=== PATIENT | male | born 1940 | race Caucasian/White ===

== ENCOUNTER 2024-01-19 09:55 | Outpatient (RCR) | payer OTHER, SELFPAY | END 2024-01-19 23:59 | disposition home or self-care (01) | LOC: CRHB 09:55 | PROVIDERS: ATTENDING PHYSICIAN Internal Medicine Cardiovascular Disease | DX: I25.10 Atherosclerotic heart disease of native coronary artery without angina pectoris (principal); Z95.5 Presence of coronary angioplasty implant and graft | CPT/HCPCS: G0422; G0423 ==

== ENCOUNTER 2024-02-17 09:41 | Outpatient (RCR) | payer OTHER, SELFPAY | END 2024-02-17 23:59 | disposition home or self-care (01) | LOC: CRHB 09:41 | PROVIDERS: ATTENDING PHYSICIAN Internal Medicine Cardiovascular Disease; FAMILY PHYSICIAN Internal Medicine Geriatric Medicine | DX: I25.10 Atherosclerotic heart disease of native coronary artery without angina pectoris (principal); Z95.5 Presence of coronary angioplasty implant and graft | CPT/HCPCS: G0422; G0423 ==

== ENCOUNTER → 2024-03-14 09:18 | Outpatient (REF) | payer OTHER, SELFPAY | LOC: HWRAD 09:18 | PROVIDERS: ATTENDING PHYSICIAN Nurse Practitioner Family | DX: R10.9 Unspecified abdominal pain (principal) | CPT/HCPCS: 76700 ==

== ENCOUNTER 2024-03-19 10:04 | Outpatient (RCR) | payer OTHER, SELFPAY | END 2024-03-19 23:59 | disposition home or self-care (01) | LOC: CRHB 10:04 | PROVIDERS: ATTENDING PHYSICIAN Internal Medicine Cardiovascular Disease; FAMILY PHYSICIAN Internal Medicine Geriatric Medicine | DX: I25.10 Atherosclerotic heart disease of native coronary artery without angina pectoris (principal); Z95.5 Presence of coronary angioplasty implant and graft | CPT/HCPCS: G0422; G0423 ==

== ENCOUNTER → 2024-03-28 06:38 | Day surgery (SDC) | payer OTHER, SELFPAY | LOC: GI 06:38 | PROVIDERS: ATTENDING PHYSICIAN Surgery; FAMILY PHYSICIAN Internal Medicine Geriatric Medicine | DX: K57.30 Diverticulosis of large intestine without perforation or abscess without bleeding (principal); R10.84 Generalized abdominal pain; R63.4 Abnormal weight loss; K64.9 Unspecified hemorrhoids | CPT/HCPCS: 45378 ==

== ENCOUNTER → 2024-03-30 12:16 | Outpatient (REF) | payer OTHER, SELFPAY | LOC: HWRAD 12:16 | PROVIDERS: ATTENDING PHYSICIAN Nurse Practitioner Family; FAMILY PHYSICIAN Internal Medicine Geriatric Medicine | DX: R10.9 Unspecified abdominal pain (principal); R19.5 Other fecal abnormalities | CPT/HCPCS: 74177; Q9967 ==

== ENCOUNTER 2024-04-02 09:59 | Outpatient (RCR) | payer OTHER, SELFPAY | END 2024-04-02 23:59 | disposition home or self-care (01) | LOC: CRHB 09:59 | PROVIDERS: ATTENDING PHYSICIAN Internal Medicine Cardiovascular Disease; FAMILY PHYSICIAN Internal Medicine Geriatric Medicine | DX: I25.10 Atherosclerotic heart disease of native coronary artery without angina pectoris (principal); Z95.5 Presence of coronary angioplasty implant and graft | CPT/HCPCS: G0422; G0423 ==

== ENCOUNTER 2024-07-02 14:23 | Emergency (ER) | payer OTHER, SELFPAY ==
[2024-07-02 14:27] VITALS: BP 160/93
[2024-07-02 15:03] LABS: % Basophils 0.6 % (0-2); % Eosinophils 1.6 % (0-6); % Immature Granulocytes 0.3 % (0-0.5); % Lymphocytes 22.3 % (20.5-51.1); % Neutrophils 65.2 % (42.2-75.2); Absolute Eosinophils 0.1 10^3/uL (0-0.7); Absolute Lymphocytes 1.4 10^3/uL (1.2-3.4); Absolute Monocytes 0.6 10^3/uL (0.1-0.6); Absolute Neutrophils 4.2 10^3/uL (1.4-6.5); Hematocrit 34.8 % (39.0-52.0); Hemoglobin 11.6 g/dL (13.0-18.0); Mean Corp Hgb Conc. 33.3 g/dL (33.0-37.0); Mean Corpuscular Hgb 28.8 pg (27.0-31.0); Mean Corpuscular Volume 86.4 fL (80.0-94.0); Mean Platelet Volume 10.1 fL (7.4-10.4); Nucleated Red Blood Cells % 0 % (-); Platelet Count 255 10^3/uL (130-400); Red Blood Cell Count 4.03 10^6/uL (4.70-6.10); Red Cell Dist. Width 17.3 % (11.5-14.5); White Blood Cell Count 6.4 10^3/uL (4.8-10.8)
[2024-07-02 15:31] LABS: ALT (SGPT) 31 U/L (0-50); AST (SGOT) 40 U/L (17-59); Albumin 2.7 g/dl (3.5-5.0); Alkaline Phosphatase 172 U/L (38-126); Blood Urea Nitrogen 24 mg/dl (9-20); Carbon Dioxide 27 mmol/L (22-30); Chloride 104 mmol/L (98-107); Glucose 91 mg/dl (70-99); Potassium 4.4 mmol/L (3.5-5.1); Sodium 138 mmol/L (135-145); Total Protein 6.8 g/dl (6.3-8.2); eGFR > 60.00
--- NOTE | 2024-07-02 15:45 | ED.GENMED ---
History of Present Illness
General
Chief Complaint: Heart Rate Problem
Source: patient
Exam Limitations: none
Time Seen by Provider: 07/02/24 14:50
Nursing documentation reviewed up to this point in time: agreed with
History of Present Illness
History of Present Illness:
84-year-old male past medical history of hypertension hyperlipidemia CAD status post recent stent [address] Domingo presenting to the emergency department today after being told he has atrial fibrillation after routine primary care
follow-up visit. Denies any symptoms over the past few days.
Past History
Past History
ED Past Medical History: HTN, Hypercholesterolemia and Other (arthritis)
ED Past Surgical History: Orthopedic ( Left shoulder labrum tear repair Dr. Carter. Recent left rotator cuff redo a t Cm, previous right total knee)
Review of Systems
Review of Systems
Allergies reviewed?: Yes
All Other Systems: ROS reviewed and negative except as documented in HPI and ROS
Phy Exam
Physical Exam
Physical Exam:
GENERAL: Alert , in no apparent distress
EYE: pupils equal and reactive
NECK: Supple, no significant adenopathy.
ENT: o/p clr, mmm.
CARDIAC: Irregularly irregular
LUNGS: Clear breath sounds bilaterally, no acute respiratory distress, no wheezes/rales/rhonchi
ABDOMEN: Soft, without focal tenderness, no r/g, no cvat
NEUROLOGICAL: Alert and oriented, no focal neuro deficits
SKIN: Warm and dry, skin intact.
MUSCULOSKELETAL: No edema, well perfused.
PSYCH: Normal and appropriate interaction.
Course
Orders/Labs/Results
Orders:
Orders
07/02/24 14:32
ECG [Electrocardiogram (*1)] Urgent
Reason for Study: Tachycardia
07/02/24 14:33
EKG- Treatment ONCE
07/02/24 14:56
Complete Blood Count/With Diff Urgent
Comprehensive Metabolic Panel Urgent
Magnesium Urgent
TSH Urgent
Abnormal Lab Results
07/02/24
14:56
RBC 4.03 L 10^6/uL
(4.70-6.10)
Hgb 11.6 L g/dL
(13.0-18.0)
Hct 34.8 L %
(39.0-52.0)
RDW 17.3 H %
(11.5-14.5)
Monocytes % 10.0 H %
(1.7-9.3)
BUN 24 H mg/dl
(9-20)
Alkaline Phosphatase 172 H U/L
(38-126)
Albumin 2.7 L g/dl
(3.5-5.0)
07/02/24 14:56
07/02/24 14:56
Vital Signs
Initial and Last Documented VS:
Initial Vital Signs
Temp Pulse Resp BP Pulse Ox
98.3 F 106 20 160/93 97
07/02/24 14:27 07/02/24 14:27 07/02/24 14:27 07/02/24 14:27 07/02/24 14:27
Last Documented Vital Signs
Temp Pulse Resp BP Pulse Ox
98.3 F 106 20 160/93 97
07/02/24 14:27 07/02/24 14:27 07/02/24 14:27 07/02/24 14:27 07/02/24 14:27
MDM/Problems Addressed
MDM/Problems Addressed:
84-year-old male presenting to the emergency department after being told to come in when he was discovered to have atrial fibrillation at a routine primary care follow-up. Heart rate in the 90s here patient asymptomatic denies specifically chest
pain shortness of breath palpitations. Labs were drawn and unremarkable. EKG showing A-fib no additional concerning features. Case discussed with cardiology, Saw the patient recommending starting metoprolol. They cleared him to get his scope
tomorrow and will start Eliquis to the primary care doctor to start Eliquis thereafter if no risk of bleeding. Otherwise stable for discharge asymptomatic throughout ER stay.
*Critical Care Note
Total Time (30-74mins, 75-104mins- exclusive of procedures): Not Applicable
ED Attending Note
-
Portions of this chart may have been created with voice recognition software.� Occasional wrong word or��sound alike� substitutions may have occurred due to the inherent limitations of voice recognition software.
Discharge Plan
Departure
Patient Disposition: Home (Routine Discharge)
Date of Disposition: 07/02/24
Time of Disposition: 16:47
Patient with high blood pressure during this ER visit?: No
Condition: Good
Covid-19: Not Applicable
Discharge Problem:
Atrial fibrillation
Instructions: Atrial Fibrillation (DC)
Prescriptions:
No Action
Melatonin
1 tab PO HSPRN PRN (Reason: sleep)
Patient Comments:
07/02/2020: Pt did not know which strength
diclofenac sodium 75 mg Tablet,Delayed Release (Dr/Ec)
75 mg PO HS
sulfamethoxazole-trimethoprim [Bactrim DS] 800-160 mg tablet
1 tab PO Q12H Qty: 28 0RF
Rx Instructions:
Take with over the counter probiotic.
tamsulosin [Flomax] 0.4 mg capsule
0.4 mg PO DAILY Qty: 14 0RF
amlodipine 5 mg Tablet
5 mg PO DAILY
methenamine hippurate 1 gram Tablet
1 g PO BID
aspirin 81 mg Capsule
81 mg PO DAILY
clopidogrel [clopidogrel] 75 mg tablet
75 mg PO DAILY Qty: 90 10RF
nitroglycerin [nitroglycerin] 0.4 mg tablet, sublingual
0.4 mg sublingual [id number] PRN (Reason: chest pain) Qty: 25 5RF
atorvastatin 20 mg tablet
20 mg PO QPM Qty: 90 5RF
Referrals:
Nestor Domingo MD [Active] - Follow up in 10 days
Collin Smallwood MD [Family Provider] -
Activity Restrictions/Additional Instructions:
You came to the emergency department today with concerns of atrial fibrillation. Please take the metoprolol 25 mg twice daily until follow-up. After your scope please follow-up close with the primary care doctor to discuss getting started on
Eliquis if you are eligible for it. Return to the emergency department immediately for any worsening, new or concerning symptoms.
Interventions
Interventions:
*Risk Screen - Suicide Last Done: 07/02/24 14:27
*General Assessment Last Done: 07/02/24 14:27
*Neglect/Abuse Screening Last Done: 07/02/24 14:27
ED- Cardiac Assessment Last Done: 07/02/24 15:25
ED- Pulmonary Assessment Last Done: 07/02/24 15:25
Discharge Date and Time
Print Language: ARMENIAN
[2024-07-02 16:00] LABS: TSH 0.65 uIU/ml (0.47-4.68)
--- NOTE | 2024-07-02 16:13 | CON.CAR ---
Addendum entered and electronically signed by Juanito Moran MD 07/02/24 16:47:
I saw and examined the patient.
The [employer] EXPERT's note was reviewed and I agree with the note.
Comment: 84 y/o male with hypertension, dyslipidemia, moderate mitral regurgitation, and CAD with stenting (most recent 11/25/2023) who is here from his PCP office due to new onset AFIB. He does not feel it. BP is on elevated side. Rate is 80's-110
BPM in ER.
- rate control for now w/ metoprolol
- once endoscopy is done and OK for AC, then Eliquis and aspirin
- DCCV thereafter
Original Note:
Consultation
Consultation Request
Date/Time Consultation Requested: 07/02/24 1530
Date/Time Consultation Performed: 07/02/24 1600
Requesting Provider: Bala RIVERS
Performing Provider: Nora EPNA for Dr. Moran
Reason for Consultation: afib
Medical History
-
Chief Complaint: AFIB
History of Present Illness:
84 y/o male with hypertension, dyslipidemia, moderate mitral regurgitation, and CAD with stenting (most recent 11/25/2023) who is here from his PCP office due to new onset AFIB. He does not feel it. BP is on elevated side. Rate is 80's-110 BPM in ER.
He has an outpatient endoscopy planned for tomorrow (previous abdominal pain, as well as anemia).
Past Medical History
Past Medical History: CAD, HTN, Hypercholesterolemia and Valvular Disease
Social History
Alcohol: Occasional (1-2 drinks EOD)
Family History
Family History: Reviewed & Not Pertinent
Allergies / Home Medications
Allergy/AdvReac Type Severity Reaction Status Date / Time
Influenza Virus Vaccines Allergy Hives Verified 07/02/24 14:27
�Medication �Instructions �Recorded �Confirmed �Type
Melatonin 1 tab PO HSPRN PRN sleep 07/02/20 11/25/23 History
diclofenac sodium 75 mg 75 mg PO HS 12/13/22 11/25/23 History
tablet,delayed release
sulfamethoxazole 800 1 tab PO Q12H #28 tabs 12/20/22 11/25/23 Rx
mg-trimethoprim 160 mg tablet
(Bactrim DS)
tamsulosin 0.4 mg capsule (Flomax) 0.4 mg PO DAILY #14 caps 11/16/23 11/25/23 Rx
amlodipine 5 mg tablet 5 mg PO DAILY 11/25/23 11/25/23 History
aspirin 81 mg capsule 81 mg PO DAILY 11/25/23 11/25/23 History
atorvastatin 20 mg tablet 20 mg PO QPM #90 tabs 11/25/23 Rx
clopidogrel 75 mg tablet 75 mg PO DAILY #90 tabs 11/25/23 Rx
methenamine hippurate 1 gram tablet 1 g PO BID 11/25/23 11/25/23 History
nitroglycerin 0.4 mg sublingual 0.4 mg sublingual [id number] PRN 11/25/23 Rx
tablet chest pain #25 tabs
Review of Systems
-
History Source: Patient
All other systems: Negative unless noted (he is feeling fine and currently symptom free)
Physical Exam
Vital Signs
Temp Pulse Resp BP Pulse Ox
98.3 F 106 20 160/93 97
07/02/24 14:27 07/02/24 14:27 07/02/24 14:27 07/02/24 14:27 07/02/24 14:27
Lab Results
07/02/24 14:56
07/02/24 14:56
Physical Exam
General: Well Developed, Well Nourished and No Apparent Distress
HEENT: Normocephalic and Anicteric
Respiratory: Clear and Non Labored Respirations
Cardiac: Irregular Rhythm and Murmur (II/ systolic)
Musculoskeletal: No Edema
Skin: Warm and Dry
Neuro: AO x 3
Psych: Calm
Impression / Plan
-
AFIB: new diagnosis
-type and onset unknown
-asymptomatic
-rates only mildly elevated at rest- add metoprolol 25 mg PO BID- script sent to pharmacy
-[id number] score is 4 for age, HTN, and CAD. He has had anemia and has plans for endoscopy tomorrow. Once he has this procedure and there is not concern for bleeding, per Dr. Domingo patient should discuss with Dr. Smallwood and get started on
Eliquis (dose would be 5 mg PO BID based on most recent office weight as well as creatinine).
-will arrange for 1 month f/u in our office.
-TSH WNL. We discussed risk factor management (ETOH, exercise, weight, sleep apnea, etc.)
CAD with hx stenting (most recent 11/2023):
-stable without CP
-on ASA. Plavix held for procedure tomorrow. If no bleeding, add Eliquis as above (Eliquis + Aspirin).
-continue statin
HTN:
-elevated in ER
-continue amlodipine and monitor with addition of metoprolol
Moderate MR:
-no concerning symptoms
-monitor as OP over time
Data Reviewed
-
EKG: Tracing Personally Visualized and interpreted (AFIB with RVR 107 BPM)
Medical Tests (Nuc Med, Echo etc): Report Reviewed by me (echo 09/26/23:Severe concentric left ventricular hypertrophy. Ejection fraction visually 55 to 60% with akinesis of the basal inferior wall. Hypokinesis of the basal inferolateral wall. Stage
III DD. Mildly enlarged right ventricular size with increased right ventricular wall thickness, but normal fu)
Labs: Labs Reviewed by me
[2024-07-02] MEDS: LOPRESSOR 25 MG PO (16:52)
== END 2024-07-02 17:44 | disposition home or self-care (01) ==
LOC: EMR 14:23
PROVIDERS: EMERGENCY PHYSICIAN Student in an Organized Health Care Education/Training Program; FAMILY PHYSICIAN Internal Medicine Geriatric Medicine
DX: I48.91 Unspecified atrial fibrillation (principal); I10 Essential (primary) hypertension; E78.00 Pure hypercholesterolemia, unspecified; I25.10 Atherosclerotic heart disease of native coronary artery without angina pectoris; I34.0 Nonrheumatic mitral (valve) insufficiency; Z95.5 Presence of coronary angioplasty implant and graft
CPT/HCPCS: 99283; 80053; 83735; 84443; 85025; 93005

== ENCOUNTER → 2024-07-13 10:04 | Outpatient (REF) | payer OTHER, SELFPAY | LOC: RCS 10:04 | PROVIDERS: ATTENDING PHYSICIAN Internal Medicine Cardiovascular Disease; FAMILY PHYSICIAN Internal Medicine Geriatric Medicine | DX: I34.0 Nonrheumatic mitral (valve) insufficiency (principal); I25.10 Atherosclerotic heart disease of native coronary artery without angina pectoris; I10 Essential (primary) hypertension | CPT/HCPCS: 93306 ==

== ENCOUNTER → 2024-08-21 16:56 | Outpatient (REF) | payer OTHER, SELFPAY | LOC: PAVMRI 16:56 | PROVIDERS: ATTENDING PHYSICIAN Internal Medicine Geriatric Medicine | DX: M54.50 Low back pain, unspecified (principal); G89.29 Other chronic pain | CPT/HCPCS: 72148 ==

== ENCOUNTER 2024-08-31 09:25 | Day surgery (SDC) | payer OTHER, SELFPAY | END 2024-08-31 11:22 | disposition home or self-care (01) | LOC: CATH 09:25 | PROVIDERS: ATTENDING PHYSICIAN Internal Medicine Cardiovascular Disease; FAMILY PHYSICIAN Internal Medicine Geriatric Medicine; OTHER PHYSICIAN Internal Medicine Cardiovascular Disease | DX: I48.91 Unspecified atrial fibrillation (principal); Z79.01 Long term (current) use of anticoagulants; Z79.82 Long term (current) use of aspirin; Z79.899 Other long term (current) drug therapy; Z79.02 Long term (current) use of antithrombotics/antiplatelets; I10 Essential (primary) hypertension; Z95.5 Presence of coronary angioplasty implant and graft | CPT/HCPCS: 92960; 93005 ==

== ENCOUNTER → 2024-09-18 09:54 | Outpatient (REF) | payer OTHER, SELFPAY | LOC: HWRAD 09:54 | PROVIDERS: ATTENDING PHYSICIAN Nurse Practitioner Family | DX: M79.672 Pain in left foot (principal) | CPT/HCPCS: 73620 ==

== ENCOUNTER → 2024-10-09 09:07 | Outpatient (REF) | payer OTHER, SELFPAY | LOC: HWRAD 09:07 | PROVIDERS: ATTENDING PHYSICIAN Nurse Practitioner Family | DX: R74.8 Abnormal levels of other serum enzymes (principal); R79.89 Other specified abnormal findings of blood chemistry | CPT/HCPCS: 76700 ==

== ENCOUNTER → 2025-02-27 10:19 | Outpatient (REF) | payer OTHER, SELFPAY | LOC: RAD 10:19 | PROVIDERS: ATTENDING PHYSICIAN Nurse Practitioner Family; FAMILY PHYSICIAN Internal Medicine Geriatric Medicine | DX: M25.571 Pain in right ankle and joints of right foot (principal) | CPT/HCPCS: 73610 ==

== ENCOUNTER → 2025-05-23 11:20 | Outpatient (REF) | payer OTHER, SELFPAY | LOC: HWRAD 11:20 | PROVIDERS: ATTENDING PHYSICIAN Physical Medicine & Rehabilitation; FAMILY PHYSICIAN Internal Medicine Geriatric Medicine | DX: M47.816 Spondylosis without myelopathy or radiculopathy, lumbar region (principal); M51.369 Other intervertebral disc degeneration, lumbar region without mention of lumbar back pain or lower extremity pain | CPT/HCPCS: 72114; 72170; 73502 ==

== ENCOUNTER 2025-09-03 14:59 | Inpatient (IN) | payer OTHER, SELFPAY ==
[2025-09-03] VITALS (13 sets, daily range): BP systolic 113–155; BP diastolic 60–108; BMI 25.7; BMI 23.8
--- NOTE | 2025-09-03 09:49 | ED.GENMED ---
History of Present Illness
<Bala Mtz Jr., PA-C - Last Filed: 09/03/25 13:05>
General
Chief Complaint: Heart Rate Problem
Source: patient
Exam Limitations: none
Time Seen by Provider: 09/03/25 09:35
Nursing documentation reviewed up to this point in time: agreed with
History of Present Illness
History of Present Illness:
85-year-old male past medical history of paroxysmal A-fib currently anticoagulated and currently taking diltiazem as well as hypertension hyperlipidemia presenting to the emergency department today with concerns of for 5 days of intermittent
palpitations vague shortness of breath. Feels similar to when he was in atrial fibrillation in the past. Denies any ongoing chest pain did have a brief episode a few days ago but thought this was very minimal. He has been cardioverted in the past
with success.
Past History
<Bala Mtz Jr., PA-C - Last Filed: 09/03/25 13:05>
Past History
ED Past Medical History: HTN, Hypercholesterolemia and Other (arthritis)
ED Past Surgical History: Orthopedic ( Left shoulder labrum tear repair Dr. Carter. Recent left rotator cuff redo a t Cm, previous right total knee)
Review of Systems
<Bala Mtz Jr., PA-C - Last Filed: 09/03/25 13:05>
Review of Systems
Allergies reviewed?: Yes
All Other Systems: ROS reviewed and negative except as documented in HPI and ROS
Phy Exam
<Bala Mtz Jr., PA-C - Last Filed: 09/03/25 13:05>
Physical Exam
Physical Exam:
GENERAL: Alert , in no apparent distress
EYE: pupils equal and reactive
NECK: Supple, no significant adenopathy.
ENT: o/p clr, mmm.
CARDIAC: Irregularly irregular
LUNGS: Clear breath sounds bilaterally, no acute respiratory distress, no wheezes/rales/rhonchi
ABDOMEN: Soft, without focal tenderness, no r/g, no cvat
NEUROLOGICAL: Alert and oriented, no focal neuro deficits
SKIN: Warm and dry, skin intact.
MUSCULOSKELETAL: No edema, well perfused.
PSYCH: Normal and appropriate interaction.
Course
<Bala Mtz Jr., SILVESTRE-Michael - Last Filed: 09/03/25 13:05>
Orders/Labs/Results
Orders:
Orders
09/03/25 09:15
EKG [Electrocardiogram (*1)] Stat
Reason for Study: Chest Pain
EKG- Treatment ONCE
09/03/25 09:49
Cardiac Monitoring- Treatment ONCE
CR Chest - 2 Views Urgent
Comment:
Reason For Exam: cp
09/03/25 09:56
Complete Blood Count/With Diff Urgent
Comprehensive Metabolic Panel Urgent
Magnesium Urgent
NT-proBNP Urgent
Comment: ADD
TSH Urgent
Troponin I Urgent
09/03/25 11:08
Add On- LAB Urgent
Tests Added?: BNP
09/03/25 11:09
Add On- LAB Urgent
Tests Added?: BNP
D-Dimer Urgent
09/03/25 11:38
CT Chest PE Study Urgent
Comment:
Reason For Exam: hypoxia, sob, elevated dimer
09/03/25 12:52
Furosemide [Lasix] 40 mg IV NOW STA
Abnormal Lab Results
09/03/25 09/03/25
09:56 11:09
RBC 4.25 L 10^6/uL
(4.70-6.10)
Hgb 12.3 L g/dL
(13.0-18.0)
Hct 38.1 L %
(39.0-52.0)
MCHC 32.3 L g/dL
(33.0-37.0)
RDW 14.9 H %
(11.5-14.5)
D-Dimer 1.37 H ug/mlFEU
(0.00-0.50)
Glucose 107 H mg/dl
(70-99)
Alkaline Phosphatase 209 H U/L
(38-126)
Troponin I 0.042 H* ng/ml
09/03/25 09:56
09/03/25 09:56
Vital Signs
Initial and Last Documented VS:
Initial Vital Signs
Temp Pulse Resp BP Pulse Ox
97.6 F 106 20 143/69 93
09/03/25 09:17 09/03/25 09:17 09/03/25 09:17 09/03/25 09:17 09/03/25 09:17
Last Documented Vital Signs
Temp Pulse Resp BP Pulse Ox
97.6 F 76 16 138/70 95
09/03/25 09:17 09/03/25 12:00 09/03/25 12:00 09/03/25 12:00 09/03/25 12:00
<Lulú Altman, DO - Last Filed: 09/03/25 13:08>
Orders/Labs/Results
Orders:
Orders
09/03/25 09:15
EKG [Electrocardiogram (*1)] Stat
Reason for Study: Chest Pain
EKG- Treatment ONCE
09/03/25 09:49
Cardiac Monitoring- Treatment ONCE
CR Chest - 2 Views Urgent
Comment:
Reason For Exam: cp
09/03/25 09:56
Complete Blood Count/With Diff Urgent
Comprehensive Metabolic Panel Urgent
Magnesium Urgent
NT-proBNP Urgent
Comment: ADD
TSH Urgent
Troponin I Urgent
09/03/25 11:08
Add On- LAB Urgent
Tests Added?: BNP
09/03/25 11:09
Add On- LAB Urgent
Tests Added?: BNP
D-Dimer Urgent
09/03/25 11:38
CT Chest PE Study Urgent
Comment:
Reason For Exam: hypoxia, sob, elevated dimer
09/03/25 12:52
Furosemide [Lasix] 40 mg IV NOW STA
Abnormal Lab Results
09/03/25 09/03/25
09:56 11:09
RBC 4.25 L 10^6/uL
(4.70-6.10)
Hgb 12.3 L g/dL
(13.0-18.0)
Hct 38.1 L %
(39.0-52.0)
MCHC 32.3 L g/dL
(33.0-37.0)
RDW 14.9 H %
(11.5-14.5)
D-Dimer 1.37 H ug/mlFEU
(0.00-0.50)
Glucose 107 H mg/dl
(70-99)
Alkaline Phosphatase 209 H U/L
(38-126)
Troponin I 0.042 H* ng/ml
09/03/25 09:56
09/03/25 09:56
Vital Signs
Initial and Last Documented VS:
Initial Vital Signs
Temp Pulse Resp BP Pulse Ox
97.6 F 106 20 143/69 93
09/03/25 09:17 09/03/25 09:17 09/03/25 09:17 09/03/25 09:17 09/03/25 09:17
Last Documented Vital Signs
Temp Pulse Resp BP Pulse Ox
97.6 F 76 16 138/70 95
09/03/25 09:17 09/03/25 12:00 09/03/25 12:00 09/03/25 12:00 09/03/25 12:00
<Bala Mtz Jr., PA-C - Last Filed: 09/03/25 13:05>
MDM/Problems Addressed
MDM/Problems Addressed:
85-year-old male presenting to the emergency department today with concerns of intermittent fatigue palpitations shortness of breath over the past few days. Feels similar to when he was in atrial fibrillation in the past. He is on a rate control
medication as well as Eliquis and has not missed any doses. Here tachycardic otherwise vital signs normal. Troponin mildly elevated at 0.042 no old levels for comparison. BNP elevated to 2240. Chest x-ray showing effusion CT scan that obtained
showed bilateral effusion left-sided worse than the right. Plan to admit concern patient was hypoxic while here into the high 80s requiring 4 L nasal cannula. Was given dose of Lasix.
<Bala Mtz Jr., PA-C - Last Filed: 09/03/25 13:05>
*Pulse Oximetry
SaO2: 93
Oxygen Mode of Delivery: Room air
Patient hypoxic: no (95)
*Critical Care Note
Total Time (30-74mins, 75-104mins- exclusive of procedures): Not Applicable
ED Attending Note
<Bala Mtz Jr., PA-C - Last Filed: 09/03/25 13:05>
-
Portions of this chart may have been created with voice recognition software.� Occasional wrong word or��sound alike� substitutions may have occurred due to the inherent limitations of voice recognition software.
<Lulú Altman DO - Last Filed: 09/03/25 13:08>
ED Attending Note
Patient seen and examined by attending physician: Yes
I performed the substantive portion of visit, reviewed & personally made and approve the management plan that is documented in note by myself or JANAE.: Yes
I performed a history and physical exam of patient and discussed management with resident, I reviewed resident's note and agree with documented findings and plan of care.: Yes
ED Attending Note:
85-year-old male with history of CAD status post stenting, A-fib on Eliquis presenting for shortness of breath. Patient reports symptoms for the past 4 days. Reports that last evening he particularly had difficulty sleeping. Denies known history
of congestive heart failure. Denies cough or fever. Additionally notes that he has not been having generalized fatigue and believes that he has been in A-fib for the past few weeks. Reports compliance with his medications.
Vital signs on arrival are normal. On exam, patient is in no acute respiratory distress, however does have crackles bilaterally to lung arana. Heart rate is irregular, normal rate. +1-2 lower extremity pitting edema. Concern for new onset heart
failure. Patient initially seen and evaluated by physician assistant secretary, with appropriate workup including laboratory analysis and chest x-ray imaging. BNP is elevated chest x-ray shows left-sided pleural effusion, further characterized on CT PE
study. CT shows moderate bilateral pleural effusions. Oxygen intermittently dipping down to the 80s so placed on supplemental O2. Do not feel patient is a current candidate for cardioversion, given hypoxia and current rate control. However do
feel patient warrants admission for concern of new onset heart failure. Will start patient on Lasix
Discharge Plan
Departure
Prescriptions:
No Action
amlodipine 5 mg Tablet
5 mg PO DAILY
methenamine hippurate 1 gram Tablet
1 g PO BID
acetaminophen 325 mg Capsule
650 mg PO Q6HPRN PRN (Reason: mild pain)
Eliquis 5 mg Tablet
5 mg PO BID
atorvastatin [Lipitor] 40 mg Tablet
40 mg PO QPM
diltiazem HCl 180 mg Capsule,Extended Release 24hr
180 mg PO DAILY
docusate sodium [Colace] 100 mg Capsule
100 mg PO DAILYPRN PRN (Reason: constipation)
Referrals:
Collin Smallwood MD [Family Provider, Internal Medicine]
Interventions
Interventions:
*Risk Screen - Suicide Last Done: 09/03/25 09:17
*General Assessment Last Done: 09/03/25 09:17
*Neglect/Abuse Screening Last Done: 09/03/25 10:00
*ED- Fall Risk Assessment Last Done: 09/03/25 10:00
ED- Cardiac Assessment Last Done: 09/03/25 10:00
ED- Pulmonary Assessment Last Done: 09/03/25 11:18
Discharge Date and Time
Print Language: UKRAINIAN
[2025-09-03 10:14] LABS: Hematocrit 38.1 % (39.0-52.0); Hemoglobin 12.3 g/dL (13.0-18.0); Mean Corp Hgb Conc. 32.3 g/dL (33.0-37.0); Mean Corpuscular Volume 89.6 fL (80.0-94.0); Nucleated Red Blood Cells % 0 % (-); Platelet Count 252 10^3/uL (130-400); Red Cell Dist. Width 14.9 % (11.5-14.5)
[2025-09-03 10:42] LABS: ALT (SGPT) 24 U/L (0-50); AST (SGOT) 31 U/L (17-59); Albumin 4.1 g/dl (3.5-5.0); Alkaline Phosphatase 209 U/L (38-126); Blood Urea Nitrogen 16 mg/dl (9-20); Calcium 9.9 mg/dl (8.4-10.2); Carbon Dioxide 28 mmol/L (22-30); Chloride 106 mmol/L (98-107); Estimated Creatinine Clearance 63 ml/min; Glucose 107 mg/dl (70-99); Magnesium 2.0 mg/dl (1.6-2.3); Potassium 4.4 mmol/L (3.5-5.1); Sodium 139 mmol/L (135-145); Total Protein 7.0 g/dl (6.3-8.2); eGFR > 60.00
[2025-09-03 11:06] LABS: TSH 1.35 uIU/ml (0.47-4.68)
[2025-09-03 11:18] LABS: Troponin I 0.042 ng/ml
[2025-09-03 11:31] LABS: D-Dimer 1.37 ug/mlFEU (0.00-0.50)
[2025-09-03] MEDS: LASIX 40 MG IV ×2 (13:27→16:36)
--- NOTE | 2025-09-03 14:41 | HPS.HSE ---
Family Physician
-
Family Physician: Collin Smallwood
Chief Complaint
-
History of Present Illness
85 male history of paroxysmal atrial fibrillation, hypertension, hyperlipidemia presents with 5 days of intermittent palpitations with associated shortness of breath. Similar to atrial fibrillation event previously. This time states that he got
scared because overnight developed shortness of breath when laying flat and improved slightly with sitting forward. Went downstairs sat in the recliner with improvement of respiratory status however was not able to fall back to sleep. Does admit
to increased shortness of breath while walking up the stairs. He has not had a change in his diet. Does not take diuretics at home.
While in the ED was hypoxic to the 80s started on supplemental oxygen. Chest x-ray showing bilateral pleural effusions. Elevated D-dimer therefore CT PE study obtained no evidence of pulmonary embolism however unable to evaluate bilateral lower
lobes pulmonary branches [place] due to bilateral pleural effusions. Elevated troponin of 0.042. EKG telemetry monitoring registering as atrial fibrillation. Hemoglobin 12.3. Received 40 mg IV Lasix.
Medical History
Past Medical History
Past Medical History: Reports Arrhythmia and CAD
Past Surgical History: Reports Cardiac
Social History
Tobacco: Non-smoker
Alcohol: None
Drug: None
Personal:
Living: With Family
Family History
Family History: Not pertinent
Allergies / Home Medications
Allergies reflects when Allergies were last updated in [facility].
Home Medications with original date entered in [facility]
Allergy/Medication List:
Allergies
Allergy/AdvReac Type Severity Reaction Status Date / Time
Influenza Virus Vaccines Allergy pt denies Verified 09/03/25 09:21
Home Medications
amlodipine 5 mg tablet 5 mg PO DAILY 11/25/23
methenamine hippurate 1 gram tablet 1 g PO BID 11/25/23
acetaminophen 325 mg capsule 650 mg PO Q6HPRN PRN mild pain 08/31/24
apixaban 5 mg tablet (Eliquis) 5 mg PO BID 08/31/24
atorvastatin 40 mg tablet (Lipitor) 40 mg PO QPM 09/03/25
diltiazem HCl 180 mg capsule,extended release 24 hr 180 mg PO DAILY 09/03/25
docusate sodium 100 mg capsule (Colace) 100 mg PO DAILYPRN PRN constipation 09/03/25
Review of Systems
-
A 12 point ROS was completed and negative except as noted: Yes
Physical Exam
Vital Signs
Vital Signs
Temp Pulse Resp BP Pulse Ox
97.6 F 85 21 137/71 96
09/03/25 09:17 09/03/25 14:00 09/03/25 14:00 09/03/25 14:00 09/03/25 14:00
Physical Exam
General: Well Developed
Laboratory Results
-
09/03/25 09:56
09/03/25 09:56
Laboratory Results
Total Bilirubin 1.0 mg/dl (0.2-1.3) 09/03/25 09:56
AST 31 U/L (17-59) 09/03/25 09:56
ALT 24 U/L (0-50) 09/03/25 09:56
Alkaline Phosphatase 209 U/L (38-126) H 09/03/25 09:56
Troponin I 0.042 ng/ml H* 09/03/25 09:56
Impression/Plan
-
NAD, lying in a 45 degree position does not appear to be in acute respiratory distress, on 4 L nasal cannula with a SpO2 of 95%.
Scleral Anicteric
MMM
JVD positive
Bibasilar crackles up to middle lobe
IRR, S1/S2, 1-2+ pitting edema bilaterally lower extremity
Soft, NT, ND, BS+
Warm, Dry
AAOx3
Calm
Acute on chronic hypoxemic respiratory failure with a documented SpO2 80% in the ED, radiographically pleural effusion b/l
Secondary to acute on chronic HFpEF exacerbation
IV diuretics
Wean o2 as tolerated
Maintain sp2 >90%
Acute hfpef, nyha class III-IV, without evidence of cardiogenic shock
Iv diuretics bid
Daily weight
Will need GDMT once more stable
-SGLT2i and MRA consideration
Does not need inotropic support at this time
Keep K greater than 4 magnesium greater than 2
2D echo
TSH
Goal urinary output of -1.5 to 2 L daily
Follow renal function
Consult cardiology
Pleural effusion likley to above
If unable to wean o2 after diuretics then would repeat cxr,
--If pleural effusion remain present would get an chest ultrasound and consult IR
Atrial fibrillation, paroxysmal
Continue diltiazem
Continue Eliquis
Check TSH
Has a history of requiring RADHA/DCCV last 08/31/2024
Consult cardiology as RADHA/DCCV may be required
NIMI
Trend trops till peak
Check EKG if uptrending
2d echo for WMA
CAD s/p PCI
Continue eliquis adn statin
Anemia Normocytic
Unlikely to contribute to symptomatology
Can check iron panel as an outpatient
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
Continue Methenamine BID
Full code
--- NOTE | 2025-09-03 15:43 | CON.CAR ---
Addendum entered and electronically signed by Gerald Olsen MD 09/03/25 17:41:
I reviewed and agree with the note by JEAN and it accurately reflects our care.
I saw and evaluated the patient, and I provided the substantive portion of the medical decision making. My assessment and plan is below:
85-year-old man with CAD, paroxysmal atrial fibrillation, and mixed valvular disease who presents with lower extremity edema and shortness of breath in the setting of atrial fibrillation for the past 2 weeks. Patient reports he thinks he went into
A-fib about 2 weeks ago because he has been very tired since then. Ankles have been swollen and he has had difficulty laying flat to sleep. Last night only got 1 hour of sleep so decided to come to the ER. Here he was found to be in atrial
fibrillation with heart rates in the 90s�100s. He has been started on IV Lasix.
Physical exam: Irregular rate and rhythm, no murmur, decreased breath sounds at bilateral bases, 1�2+ lower extremity edema
Telemetry: Atrial fibrillation, HR 90�100s
Labs notable for proBNP 2240, troponin 0.042 -> 0.[address]: Moderate bilateral pleural effusions
HFpEF: Likely triggered by atrial fibrillation. Continue IV diuresis with Lasix 40 mg twice daily. Will have case management nichols SGLT2 inhibitor. Update echo.
Atrial fibrillation: Rate controlled on home diltiazem. Continue Eliquis 5 mg twice daily. He denies any missed doses in the past 4 months. Cardioversion once euvolemic if he does not convert on his own.
Remainder as per JEAN note. We will continue to follow along.
Addendum entered and electronically signed by JEAN Bone 09/03/25 16:42:
Abnormal troponin, nonischemic myocardial injury in the setting of acute HFpEF
- Troponin 0.042, trend
- Chest pain free
Original Note:
Consultation
Consultation Request
Date/Time Consultation Requested: 09/03/2025 14:45
Date/Time Consultation Performed: 09/03/2025 15:30
Requesting Provider: Dr. Reinier Mcginnis
Performing Provider: JEAN Oliva for Dr. Olsen
Reason for Consultation: Acute on chronic HFpEF
Medical History
-
Chief Complaint: Shortness of breath
History of Present Illness:
Israel Capone is an 85-year-old male (known to Dr. Barahona, his primary hog slaughterer), with CAD (prior PCI), NSVT, persistent atrial fibrillation, hypertension, hypercholesterolemia, moderate mitral regurgitation, aortic sclerosis, and severe LVH
presented to the emergency department with a chief complaint of shortness of breath. He believes he went into atrial fibrillation last week. Over the past several days he has been experiencing shortness of breath, orthopnea, and lower extremity
edema. He presented to the emergency department hypoxic. He had abnormal D-dimer. He has not had any missed doses of apixaban. CT did not demonstrate PE. He is not having any chest pain.
Past Medical History
Past Medical History: Arrhythmias (Paroxysmal atrial fibrillation, NSVT), CAD, HTN, Hypercholesterolemia and Valvular Disease (Mitral regurgitation)
Past Surgical History: Orthopedic
Social History
Employment: Retired
Family History
Family History: Reviewed & Not Pertinent
Allergies / Home Medications
Allergy/AdvReac Type Severity Reaction Status Date / Time
Influenza Virus Vaccines Allergy pt denies Verified 09/03/25 09:21
�Medication �Instructions �Recorded �Confirmed �Type
amlodipine 5 mg tablet 5 mg PO DAILY 11/25/23 09/03/25 History
methenamine hippurate 1 gram tablet 1 g PO BID 11/25/23 09/03/25 History
acetaminophen 325 mg capsule 650 mg PO Q6HPRN PRN mild pain 08/31/24 09/03/25 History
apixaban 5 mg tablet (Eliquis) 5 mg PO BID 08/31/24 09/03/25 History
atorvastatin 40 mg tablet (Lipitor) 40 mg PO QPM 09/03/25 09/03/25 History
diltiazem HCl 180 mg 180 mg PO DAILY 09/03/25 09/03/25 History
capsule,extended release 24 hr
docusate sodium 100 mg capsule 100 mg PO DAILYPRN PRN constipation 09/03/25 09/03/25 History
(Colace)
Review of Systems
-
History Source: Patient
All other systems: Negative unless noted
Constitutional: Fatigue
EENT: No Symptoms
Respiratory: Trouble Breathing
Cardiac: Palpitations
Abdomen/GI: No Symptoms
: No Symptoms
Musculoskeletal: Edema
Skin: No Symptoms
Neurological: No Symptoms
Endocrine: No Symptoms
Hematologic/Lymphatic: No Symptoms
Physical Exam
Vital Signs
Temp Pulse Resp BP Pulse Ox
97.6 F 111 21 137/71 92
09/03/25 09:17 09/03/25 15:00 09/03/25 15:00 09/03/25 14:00 09/03/25 14:45
Lab Results
09/03/25 09:56
09/03/25 09:56
Troponin I 0.042 ng/ml H* 09/03/25 09:56
Ekj-D-Rplqgcceolx Pept Cancelled 09/03/25 11:03
Physical Exam
General: Well Developed, Well Nourished, No Apparent Distress and Comfortable
HEENT: Normocephalic, Anicteric and Moist Mucous Membranes
Respiratory: Crackles and Accessory Resp Muscle Use
Cardiac: S1/S2, Irregular Rhythm and Peripheral Edema
Breast: Deferred by me
GI: Soft, Non Tender, Non Distended and Normal Bowel Sounds
Rectal: Deferred by Provider
Genito-urinary: No Costovertebral Tender
Musculoskeletal: No Clubbing, No Cyanosis and Edema
Skin: Warm and Dry
Neuro: AO x 3
Hematologic/Lymphatic: No Lymphadenopathy
Psych: Calm
Impression / Plan
-
I/P: 85M with CAD (prior PCI), NSVT, persistent atrial fibrillation, hypertension, hypercholesterolemia, moderate mitral regurgitation, aortic sclerosis, and severe LVH presented to the emergency department with a chief complaint of shortness of
breath
Primary hog slaughterer: Dr. Barahona
Acute hypoxemic respiratory insufficiency, in the setting of acute HFpEF - plan as below
HFpEF, acute, severe requiring hospitalization - NEW diagnosis
- Appears volume overloaded with elevated proBNP, bilateral lower extremity edema, pleural effusions on CXR, orthopnea, and associated hypoxemia
- Diuresis with furosemide 40 mg IV twice daily
- He would benefit from lower extremity compression, ordered
- Case management to nichols SGLT2i (follows with urology for chronic prostatitis, this may not be ideal), consider MRA
- Update echocardiogram tomorrow, he is having orthopnea today
- Trend daily weight, I's/O, and BMP with diuresis
- Heart failure education
Persistent atrial fibrillation
- He had fatigue with metoprolol, now on diltiazem, currently rate controlled
- Consider DCCV after he is euvolemic, perhaps
- Oral anticoagulation: Apixaban 5 mg twice daily, he denies missed doses and abnormal bleeding
CAD
- DEVIN to D1 (2023)
- Known occluded midportion RCA with well-developed jlit-an-jczui collaterals supplying the PDA and backfilling into the distal RCA
- On single agent apixaban
- LDL at goal on current dose of atorvastatin
Severe LVH
- EKG without low voltage
- Can consider amyloid evaluation, per primary hog slaughterer
Mitral regurgitation, moderate, update TTE
Hypertension
Hypercholesterolemia, LDL at goal on atorvastatin 40 mg, continue
Data Reviewed
-
EKG: Report Reviewed by me
Radiology: Report Reviewed by me
Medical Tests (Nuc Med, Echo etc): Report Reviewed by me
Labs: Labs Reviewed by me
Old Records: Reviewed
[2025-09-03] MEDS: LIPITOR 40 MG PO (16:38)
[2025-09-03] MEDS: FLUSH (NSS) 1 FLUSH IV (16:38)
[2025-09-03 17:26] LABS: Troponin I 0.050 ng/ml
--- NOTE | 2025-09-03 17:26 | PTCARENOTE ---
received this kind gentleman form the ER, monitor shows Afib, HR 101, VSS. lung arana diminished on 3 LNC,95%. bilat. LE edema +2. Tubigrip on Bilat. LE as ordered. oriented patient to room and surroundings. CHF book;let given to patient, patient
aware to save urine to monitor output.
[2025-09-03] MEDS: ELIQUIS 5 MG PO (19:30)
[2025-09-03] MEDS: HIPREX 1 GRAM PO (19:30)
[2025-09-03 21:24] LABS: Troponin I 0.059 ng/ml
--- NOTE | 2025-09-03 22:24 | PTCARENOTE ---
Received patient at change of shift. Afib on the monitor, HR in the 90s. 95% on 2L nasal cannula. Contact precautions. Tubigrips removed HS. No complaints from pt at this time, call latif within reach.
[2025-09-04 03:30] VITALS: BP 130/62
[2025-09-04 03:47] VITALS: BMI 23.2
[2025-09-04 04:26] LABS: Hematocrit 40.4 % (39.0-52.0); Hemoglobin 12.8 g/dL (13.0-18.0); Mean Corp Hgb Conc. 31.7 g/dL (33.0-37.0); Mean Corpuscular Volume 89.8 fL (80.0-94.0); Platelet Count 289 10^3/uL (130-400); Red Cell Dist. Width 14.6 % (11.5-14.5)
[2025-09-04 04:54] LABS: Blood Urea Nitrogen 15 mg/dl (9-20); Calcium 9.7 mg/dl (8.4-10.2); Carbon Dioxide 31 mmol/L (22-30); Chloride 101 mmol/L (98-107); Estimated Creatinine Clearance 63 ml/min; Glucose 88 mg/dl (70-99); Magnesium 1.9 mg/dl (1.6-2.3); Potassium 4.0 mmol/L (3.5-5.1); Sodium 140 mmol/L (135-145); eGFR > 60.00
[2025-09-04 05:08] LABS: Troponin I 0.072 ng/ml
[2025-09-04 07:48] VITALS: BP 145/73
[2025-09-04] MEDS: HIPREX 1 GRAM PO ×2 (08:02→20:16)
[2025-09-04] MEDS: LASIX 40 MG IV (08:02)
[2025-09-04] MEDS: ELIQUIS 5 MG PO ×2 (08:03→20:16)
[2025-09-04] MEDS: CARDIZEM CD 180 MG PO (08:03)
--- NOTE | 2025-09-04 09:32 | W.PN.CD ---
Today's Communication / Plan
-
IV Lasix once today
DCCV tomorrow with then should be stable for discharge
Impression / Plan
-
I/P: 85M with CAD (prior PCI), NSVT, persistent atrial fibrillation, hypertension, hypercholesterolemia, moderate mitral regurgitation, aortic sclerosis, and severe LVH presented to the emergency department with a chief complaint of shortness of
breath
Primary research professional: Dr. Barahona
HFpEF, acute, severe requiring hospitalization - NEW diagnosis
- Triggered by A-fib. Appears volume overloaded with elevated proBNP, bilateral lower extremity edema, pleural effusions on CXR, orthopnea, and associated hypoxemia
- Diuresis with furosemide 40 mg IV. Given brisk UOP yesterday, will only dose once today. Weight is lowest in years.
- Will hold off on MRA/SGLT2 inhibitor given that he only has HF at the time of A-fib. Can consider if he has recurrence of HFpEF
- Follow-up echocardiogram
- Trend daily weight, I's/O, and BMP with diuresis
- Heart failure education
Persistent atrial fibrillation
- He had fatigue with metoprolol, now on diltiazem, currently rate controlled
- Will plan for DCCV tomorrow
- Oral anticoagulation: Apixaban 5 mg twice daily, he denies missed doses and abnormal bleeding
- Discussion of rhythm control strategy (ablation versus meds) as outpatient
CAD
- DEVIN to D1 (2023)
- Known occluded midportion RCA with well-developed [id number]-[id number] collaterals supplying the PDA and backfilling into the distal RCA
- On single agent apixaban
- LDL at goal on current dose of atorvastatin
Severe LVH
- EKG without low voltage
- Can consider amyloid evaluation, per primary research professional
Mitral regurgitation, moderate, update TTE
Hypertension
Hypercholesterolemia, LDL at goal on atorvastatin 40 mg, continue
Subjective: Breathing has improved. He was able to sleep laying flat last night. Lower extremity edema has also significantly improved.
He is net -5.7 L for the past 24 hours and weight has decreased from 170 pounds yesterday to 166 pounds today.
Physical Exam
Vital Signs/Labs
Vital Signs
Temp Pulse Resp BP Pulse Ox
97.6 F 105 20 145/73 92
09/04/25 07:48 09/04/25 08:30 09/04/25 07:48 09/04/25 08:02 09/04/25 07:48
09/03/25 09/04/25 09/05/25
06:59 06:59 06:59
Actual Weight 166 lb 3.657 oz
09/04/25 03:42
09/04/25 03:42
Magnesium 1.9 mg/dl (1.6-2.3) 09/04/25 03:42
TSH Cancelled 09/04/25 03:42
09/03/25 09/03/25
09:56 11:03
Nhp-R-Cinjywzggvx Pept 2240 Cancelled
LAB Results
09/03/25 09/03/25 09/03/25
09:56 16:31 16:49
Troponin I 0.042 H* Cancelled 0.050 H*
09/03/25 09/04/25 09/04/25
20:47 03:42 09:40
Troponin I 0.059 H* 0.072 H* Cancelled
Physical Exam
Constitutional: No acute distress and Comfortable
Cardiovascular: Pedal edema is absent, Rhythm/rate is irregular, S1S2 is normal and Murmur/rub/gallop absent
Respiratory: Respiratory effort normal and Lungs clear to auscul.
Neuro/Psych: AO x 3
Data Reviewed
-
Date of Service: September 04, 2025
Medical Decision Making: Reviewed Test Results, Test Interpretation and Review of Case with other Provider
EKG: Tracing Personally Visualized and interpreted
Labs: Labs Reviewed by me
--- NOTE | 2025-09-04 11:29 | CM ---
priced meds withpts perscrip plan- future scripts- he has no deductible with his plan
-farxiga- $145/month and Jardiance is $ 152/month until he pays the $2000 OOP expense, then it is covered at zero dollars.
[2025-09-04 11:51] VITALS: BP 106/71
--- NOTE | 2025-09-04 12:57 | PTCARENOTE ---
Pt is AOx3, no complaints of pain or discomfort. Independent OOB. Afib on tele monitor, VSS. Pt went for ECHO today. Plan for CV tomorrow, will be NPO at midnight. Call latif within reach.
--- NOTE | 2025-09-04 14:29 | CM ---
spoke to pt in room, he is prev indep, lives with his in a 2 story home with 4 steps to enter. he denies any dc planning needs or dme's. plan is for dc to home when medically stable.
--- NOTE | 2025-09-04 14:33 | W.PN.HOSP.TC ---
Today's Communication/Plan
-
Assessment / Plan
Assessment / Plan
NAD
Scleral Anicteric
MMM
JVD - negative
CTABL
IRR, S1/S2, 1-2+ pitting edema bilaterally lower extremity
Soft, NT, ND, BS+
Warm, Dry
AAOx3
Calm
Acute on chronic hypoxemic respiratory failure with a documented SpO2 80% in the ED, radiographically pleural effusion b/l
Secondary to acute on chronic HFpEF exacerbation
IV diuretics
Wean o2 as tolerated
Maintain sp2 >90%
Acute hfpef, nyha class III-IV, without evidence of cardiogenic shock
Iv diuretics - made daily by cards
Daily weight
Will need GDMT once more stable
-SGLT2i and MRA consideration
Does not need inotropic support at this time
Keep K greater than 4 magnesium greater than 2
2D echo
TSH
Goal urinary output of -1.5 to 2 L daily
Follow renal function
Consult cardiology
Pleural effusion likley to above
If unable to wean o2 after diuretics then would repeat cxr,
--If pleural effusion remain present would get an chest ultrasound and consult IR
Atrial fibrillation, paroxysmal
Continue diltiazem
Continue Eliquis
Check TSH
Has a history of requiring RADHA/DCCV last 08/31/2024
Consult cardiology as RADHA/DCCV
-NPO aftermidnight
-Plan for cardioversion
NIMI
Trend trops till peak
Check EKG if uptrending
2d echo for WMA
CAD s/p PCI
Continue eliquis adn statin
Anemia Normocytic
Unlikely to contribute to symptomatology
Can check iron panel as an outpatient
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
Continue Methenamine BID
Full code
Anticipated Discharge: 24 - 48 hours
Subjective/Interval History
-
Date of Service: September 04, 2025
seen and exmained. no new complaints. no acute overnight event
Objective Data
-
Labs:
Laboratory Results
09/04/25
03:42
WBC 6.0
Hgb 12.8 L
Hct 40.4
Plt Count 289
Sodium 140
Potassium 4.0
Chloride 101
Carbon Dioxide 31 H
BUN 15
Creatinine 0.9
Glucose 88
Calcium 9.7
Vital Signs:
Vital Signs
Temp Pulse Resp BP Pulse Ox
97.9 F 68 20 106/71 94
09/04/25 11:52 09/04/25 12:45 09/04/25 11:52 09/04/25 11:51 09/04/25 11:52
I&O
09/03/25 09/04/25 09/05/25
06:59 06:59 06:59
Output Total 5150 / 5150 600 / 600
Balance -5150 / -5150 -600 / -600
[2025-09-04 15:42] VITALS: BP 110/72
[2025-09-04] MEDS: LIPITOR 40 MG PO (17:29)
[2025-09-04 19:02] VITALS: BP 106/63
[2025-09-04 22:29] VITALS: BP 119/74
--- NOTE | 2025-09-04 22:43 | PTCARENOTE ---
Received patient at change of shift. Afib on the monitor, HR in the 70s. NPO at midnight, pt verbalizes understanding. No complaints from pt at this time, call latif within reach.
[2025-09-05 04:05] VITALS: BP 110/61
[2025-09-05 04:25] LABS: Hematocrit 36.2 % (39.0-52.0); Hemoglobin 12.1 g/dL (13.0-18.0); Mean Corp Hgb Conc. 33.4 g/dL (33.0-37.0); Mean Corpuscular Volume 88.9 fL (80.0-94.0); Platelet Count 263 10^3/uL (130-400); Red Cell Dist. Width 14.4 % (11.5-14.5)
[2025-09-05 04:26] VITALS: BMI 23.1
[2025-09-05 04:50] LABS: Blood Urea Nitrogen 20 mg/dl (9-20); Calcium 9.6 mg/dl (8.4-10.2); Carbon Dioxide 30 mmol/L (22-30); Chloride 103 mmol/L (98-107); Estimated Creatinine Clearance 63 ml/min; Glucose 88 mg/dl (70-99); Magnesium 1.9 mg/dl (1.6-2.3); Potassium 4.0 mmol/L (3.5-5.1); Sodium 137 mmol/L (135-145); eGFR > 60.00
[2025-09-05] MEDS: HIPREX 1 GRAM PO (08:16)
[2025-09-05] MEDS: ELIQUIS 5 MG PO (08:16)
[2025-09-05] MEDS: CARDIZEM CD 180 MG PO (08:16)
[2025-09-05 08:18] VITALS: BP 116/66
[2025-09-05 08:20] VITALS: BP 116/66
--- NOTE | 2025-09-05 08:58 | W.PN.CD ---
Today's Communication / Plan
-
DCCV today, discharge if feeling well
Afib ablation consideration as outpatient
will eval for amyloid as outpatient
SGLT2i as outpatient
Impression / Plan
-
I/P: 85M with CAD (prior PCI), NSVT, persistent atrial fibrillation, hypertension, hypercholesterolemia, moderate mitral regurgitation, aortic sclerosis, and severe LVH presented to the emergency department with a chief complaint of shortness of
breath
Primary dietetic assistant: Dr. Barahona
HFpEF, acute, severe requiring hospitalization - NEW diagnosis
- Triggered by A-fib. Appeared volume overloaded with elevated proBNP, bilateral lower extremity edema, pleural effusions on CXR, orthopnea, and associated hypoxemia
- Diuresis with furosemide 40 mg IV. Given brisk UOP, will hold off on additional diuresis. Weight is lowest in years.
- Will plan to add SGLT2i as outpatient
- Echo with normal EF, LVH, mild-mod MR
- Heart failure education
Persistent atrial fibrillation
- He had fatigue with metoprolol, now on diltiazem, currently rate controlled
- Will plan for DCCV today
- Oral anticoagulation: Apixaban 5 mg twice daily, he denies missed doses and abnormal bleeding
- Discussion of rhythm control strategy (ablation versus meds), will set up for outpatient follow up with Dr. Stewart to discuss ablation given recurrent Afib episodes with associated heart failure
CAD
- DEVIN to D1 (2023)
- Known occluded midportion RCA with well-developed atbe-ad-[id number] collaterals supplying the PDA and backfilling into the distal RCA
- On single agent apixaban
- LDL at goal on current dose of atorvastatin
Severe LVH
- EKG without low voltage
- will workup for amyloid evaluation as outpatient
Mitral regurgitation, moderate, update TTE
Hypertension
Hypercholesterolemia, LDL at goal on atorvastatin 40 mg, continue
Subjective: Breathing has improved. He was able to sleep laying flat last night. Lower extremity edema has also significantly improved.
Physical Exam
Vital Signs/Labs
Vital Signs
Temp Pulse Resp BP Pulse Ox
36.5 C 119 12 116/66 93
09/05/25 08:20 09/05/25 08:20 09/05/25 08:20 09/05/25 08:20 09/05/25 04:26
09/04/25 09/05/25 09/06/25
06:59 06:59 06:59
Actual Weight 75.4 kg 75 kg
09/05/25 04:11
09/05/25 04:11
Magnesium 1.9 mg/dl (1.6-2.3) 09/05/25 04:11
TSH Cancelled 09/04/25 03:42
09/03/25 09/03/25
09:56 11:03
Xgf-Q-Eyhoyoamxlp Pept 2240 Cancelled
LAB Results
09/03/25 09/03/25 09/03/25
09:56 16:31 16:49
Troponin I 0.042 H* Cancelled 0.050 H*
09/03/25 09/04/25 09/04/25
20:47 03:42 09:40
Troponin I 0.059 H* 0.072 H* Cancelled
Physical Exam
Constitutional: Comfortable
Cardiovascular: Rhythm/rate is irregular
Respiratory: Respiratory effort normal
Neuro/Psych: AO x 3
Data Reviewed
-
Date of Service: September 05, 2025
Medical Decision Making: Reviewed Test Results
EKG: Tracing Personally Visualized and interpreted
Echo: Tracing Personally Visualized and interpreted
X-Ray/CT/US/MRI/NUC/PET: Image Personally Visualized and interpreted
Labs: Labs Reviewed by me
--- NOTE | 2025-09-05 09:49 | PN.CDI ---
CDI
- -
CDI:
Physician Documentation Request
Admit Date: 09/03/25 14:59
Dear Doctor Ras,
Patient admitted for respiratory failure.
09/04 Cardiology PN: 'Persistent atrial fibrillation - He had fatigue with metoprolol, now on diltiazem, currently rate controlled - Will plan for DCCV tomorrow'
09/04 Hospitalist PN: 'Atrial fibrillation, paroxysmal, Continue diltiazem, Continue Eliquis'
If possible, please provide further specificity regarding atrial fibrillation, such as:
Persistent atrial fibrillation - episodes of continuous AF that last more than 7 days and do not self-terminate
Paroxysmal atrial fibrillation - terminates spontaneously or with intervention within 7 days of onset
Other - please specify
Use of terms such as suspected, likely, concern for, or probable (associated with a specific diagnosis that is being evaluated, monitored, or treated as if it exists) are acceptable and can be coded in the inpatient setting, when documented at the
time of discharge.
Thank you,
Isis Betancur RN, BSN
CDI Specialist
Available via [employer] text
Please use your independent medical judgment in providing your response.
--- NOTE | 2025-09-05 11:21 | ITS.CL.CARDI ---
Chief Science Officer - Cardioversion
Cardioversion
Procedure Report:
Date of Procedure: 09/05/25
Procedure: Cardioversion
Indication: Symptomatic atrial fibrillation
Performing Physician: Chuy Guevara MD
Technique: The patient was brought to the holding area. Signed informed consent was obtained. A time out was called and performed. The patient was anesthetized by the anesthesia service. Anticoagulation status was reviewed and appropriate. R2 pads
were placed anteriorly and posteriorly. A 200 J synchronized biphasic shock restored normal sinus rhythm without significant bradycardia. There were no complications.
Conclusion: Uncomplicated cardioversion from atrial fibrillation to sinus rhythm.
Recommendation: Routine post cardioversion care. Continue terminologist anticoagulation.
[2025-09-05 12:56] VITALS: BP 123/72
--- NOTE | 2025-09-05 14:50 | W.DCSUMMARY ---
Discharge Summary
Discharge Data
Date of Admission: 09/03/25
Date of Discharge: 09/05/25
-
Pending Results: No
Hospital Course
85 male history of paroxysmal atrial fibrillation, hypertension, hyperlipidemia
Presented with shortness of breath and palp will be getting worse. He was unable to breathe while laying flat slightly improved with sitting forward. Elevated BNP. Elevated troponin. Found to be in atrial fibrillation however rate controlled.
Chest x-ray demonstrating bilateral pleural effusions. Elevated D-dimer however CT PE was negative for pulmonary embolism. Started on IV diuretics evaluated by cardiology. 2D echocardiogram obtained results are as below. Tolerated IV diuretics
well. Suspect heart failure exacerbation was secondary to paroxysmal atrial fibrillation that has been ongoing for the last several days. On 09/05/2025 was cardioverted back into sinus rhythm by cardiology. Recommend outpatient follow-up with
cardiology for further heart failure GDMT management.
Will need to follow-up with electrophysiology for continued discussion of ablation versus medication and treatments of rhythm control strategy. Will also need to follow-up with cardiology for further amyloid evaluation as outpatient due to EKG with
low voltage and severe LVH.
CXR
IMPRESSION:
Left basilar opacification at least in part compatible with small left pleural effusion, possible accompanying atelectasis and/or pneumonia.
Ct Chest
IMPRESSION:
No evidence of central pulmonary embolism. Unfortunately, as result of moderate bilateral pleural effusions (left slightly greater than right) and left greater than right lower lobe opacification, evaluation of bilateral lower lobe pulmonary
arterial branches markedly limited and pulmonary embolism cannot be excluded.
Left lower lobe opacification suggesting atelectasis and/or pneumonia.
Pulmonary interstitium at least top normal, cannot exclude mild interstitial edema or pneumonitis.
2d echo
SUMMARY
1. Ejection fraction is 55-60% by visual assessment. Severe concentric left ventricular hypertrophy. Basal to mid inferior/inferolateral hypokinesis.
2. Right ventricular cavity size cavity is mildly dilated. Right ventricular systolic function is within normal limits.
3. Severely dilated left atrium.
4. Severely dilated right atrium.
5. Mild to moderate mitral valve regurgitation.
6. Mild tricuspid regurgitation. Estimated pulmonary artery pressure of 28 mmHg assuming a right atrial pressure of 8 mmHg.
7. Bilateral pleural effusion is noted.
8. Compared to a prior transthoracic echocardiogram study from 07/13/2024, no significant changes are seen.
Cardioversion
Indication: Symptomatic atrial fibrillation
Performing Physician: Chuy Guevara MD
Technique: The patient was brought to the holding area. Signed informed consent was obtained. A time out was called and performed. The patient was anesthetized by the anesthesia service. Anticoagulation status was reviewed and appropriate. R2 pads
were placed anteriorly and posteriorly. A 200 J synchronized biphasic shock restored normal sinus rhythm without significant bradycardia. There were no complications.
Conclusion: Uncomplicated cardioversion from atrial fibrillation to sinus rhythm.
Recommendation: Routine post cardioversion care. Continue prison anticoagulation.
Seen and examined on the day of discharge which was 09/05. No new complaints. No acute voenright events
sitting in bedside chair.
states he can see his ankles again
NAD
Scleral Anicteric
MMM
No JVD
CTABL
IRR, S1/S2
Soft, NT, ND, BS+
Warm, Dry
AAOx3
Calm
More than 30 minutes spent in discharge including
Final examination of the patient
Summarizing hospital stay
Instructions for continuing care to all relevant caregivers
Preparation of discharge records, prescriptions, and referral forms
Total time spent (in minutes): 33mins
Discharge Plan
-
Patient Disposition: Home (Routine Discharge)
Discharge Diagnosis/Procedures: Afib - paroxysmal
Heart Failure with Preserved EF
Diet: As tolerated
Activity: As tolerated
Driving Restrictions: No driving for 24 hours
Specialty Instructions: Weigh Daily- Call MD for wt gain/loss 3 lbs overnight/5 lbs in 1 week
Activity Restrictions/Additional Instructions:
Presented with shortness of breath and palp will be getting worse. He was unable to breathe while laying flat slightly improved with sitting forward. Elevated BNP. Elevated troponin. Found to be in atrial fibrillation however rate controlled.
Chest x-ray demonstrating bilateral pleural effusions. Elevated D-dimer however CT PE was negative for pulmonary embolism. Started on IV diuretics evaluated by cardiology. 2D echocardiogram obtained results are as below. Tolerated IV diuretics
well. On 09/05/2025 was cardioverted back into sinus rhythm by cardiology. Recommend outpatient follow-up with cardiology for further heart failure GDMT management.
Will need to follow-up with electrophysiology for continued discussion of ablation versus medication and treatments of rhythm control strategy. Will also need to follow-up with cardiology for further amyloid evaluation as outpatient due to EKG with
low voltage and severe LVH.
CXR
IMPRESSION:
Left basilar opacification at least in part compatible with small left pleural effusion, possible accompanying atelectasis and/or pneumonia.
Ct Chest
IMPRESSION:
No evidence of central pulmonary embolism. Unfortunately, as result of moderate bilateral pleural effusions (left slightly greater than right) and left greater than right lower lobe opacification, evaluation of bilateral lower lobe pulmonary
arterial branches markedly limited and pulmonary embolism cannot be excluded.
Left lower lobe opacification suggesting atelectasis and/or pneumonia.
Pulmonary interstitium at least top normal, cannot exclude mild interstitial edema or pneumonitis.
2d echo
SUMMARY
1. Ejection fraction is 55-60% by visual assessment. Severe concentric left ventricular hypertrophy. Basal to mid inferior/inferolateral hypokinesis.
2. Right ventricular cavity size cavity is mildly dilated. Right ventricular systolic function is within normal limits.
3. Severely dilated left atrium.
4. Severely dilated right atrium.
5. Mild to moderate mitral valve regurgitation.
6. Mild tricuspid regurgitation. Estimated pulmonary artery pressure of 28 mmHg assuming a right atrial pressure of 8 mmHg.
7. Bilateral pleural effusion is noted.
8. Compared to a prior transthoracic echocardiogram study from 07/13/2024, no significant changes are seen.
Cardioversion
Indication: Symptomatic atrial fibrillation
Performing Physician: Chuy Guevara MD
Technique: The patient was brought to the holding area. Signed informed consent was obtained. A time out was called and performed. The patient was anesthetized by the anesthesia service. Anticoagulation status was reviewed and appropriate. R2 pads
were placed anteriorly and posteriorly. A 200 J synchronized biphasic shock restored normal sinus rhythm without significant bradycardia. There were no complications.
Conclusion: Uncomplicated cardioversion from atrial fibrillation to sinus rhythm.
Recommendation: Routine post cardioversion care. Continue prison anticoagulation.
Instructions: *CBC Heart Failure Instructions
Referrals:
Xavi Stewart MD [Active, Cardiology]
Referral Note: Office will call to arrange visit with stereo compiler to discuss ablation
Collin Smallwood MD [Family Provider, Internal Medicine]
Clyde Barahona MD [Active, Cardiology] - 10/03/25 3:00 pm
Prescriptions:
Continued
amlodipine 5 mg Tablet
5 mg PO DAILY
methenamine hippurate 1 gram Tablet
1 g PO BID
acetaminophen 325 mg Capsule
650 mg PO Q6HPRN PRN (Reason: mild pain)
Eliquis 5 mg Tablet
5 mg PO BID
atorvastatin [Lipitor] 40 mg Tablet
40 mg PO QPM
diltiazem HCl 180 mg Capsule,Extended Release 24hr
180 mg PO DAILY
docusate sodium [Colace] 100 mg Capsule
100 mg PO DAILYPRN PRN (Reason: constipation)
Discharge Orders:
Discharge Patient (As Directed); Ordered 09/05/25
Ordered By: Reinier Mcginnis
Care Plan Goals
Care Plan Goals:
Problem: Readiness for enhanced knowledge related to diagnosis and treatment plan
Goal: Understand your diagnosis and treatment plan needs, including medications if applicable.
Instructions: Know your diagnosis, underlying causes and treatment plan options, including medications if applicable. Consult with your health care team to learn about your diagnosis and treatment plan, including medications if applicable.
Discharge Date and Time
Print Language: MOZAMBICAN
[2025-09-05 14:59] VITALS: BP 120/95
--- NOTE | 2025-09-05 15:20 | PTCARENOTE ---
~1833-1700: Handoff report received from nightshift RN. Pt independent in room. AOx4, Afib 70s-120s with movement, SBP 110s, RA satting 91%. Pt denies pain at this time. NPO for CV later today. All needs met at this time, call latif within reach.
~[id number]: Report given to CCL. Patient taken for CV via wheelchair.
~4812-0274: Patient returned to room via wheelchair from CV. Pt Aox4, NSR 60s on tele, SBP 120s. Pt denies pain at this time. Ambulating in room independently. Diet advanced. Messaged general forecaster and hospitalist to dscuss dc, awaiting dc orders.
~8624-0221: DC orders in. PIV and Tele box removed from patient. Patient dressed independently. VSS. DC paperwork reviewed with patient. All questions answered at this time. Patient escorted to lobby and taken home via Uber in stable condition.
--- NOTE | 2025-09-06 09:18 | W.HF.CON ---
Heart Failure
- LV Function
Left ventricular function study result: LV Ejection fraction >/= 50%
Ejection Fraction Percentage: 55-60
- ARNI
Patient already on ARNI: No
Heart Failure ARNI Not Indicated: LV Ejection Fraction >/= 40%
- ACEI/ARB
Patient already on ACEI/ARB: No
Heart Failure ACEI/ARB Not Indicated: LV Ejection Fraction > 40%
- Beta Thony
Patient already on Evidence Based Beta Thony: No
Heart Failure Evidence Based Beta Thony Not Indicated: LV Ejection Fraction > 40%
- Mineralocorticord Receptor Antagonist
Patient already on MRA: No
Heart Failure MRA Not Indicated: LV Ejection Fraction > 40%
- SGLT-2 Inhibitor
Patient already on SGLT-2 Inhibitor: No
Heart Failure SGLT-2 Inhibitor Not Indicated: LV Ejection Fraction >40%
- Afib Anticoagulation
Patient already on Anticoagulation for Afib: Yes
- NYHA CHF Classification
NYHA CHF Classification Level: Class III - Symptoms w/ min exertion, interferes w/ nml daily activity
- ACC/AHA Stage
ACC/AHA Stage: Stage C: Symptomatic Heart Failure
== END 2025-09-05 15:20 | disposition home or self-care (01) | DRG 291 ==
LOC: IVU 14:59
PROVIDERS: Internal Medicine Cardiovascular Disease; Physician Assistant; ADMITTING PHYSICIAN Hospitalist; CONSULT PHYSICIAN Student in an Organized Health Care Education/Training Program; EMERGENCY PHYSICIAN Student in an Organized Health Care Education/Training Program; FAMILY PHYSICIAN Internal Medicine Geriatric Medicine
PROC: 5A2204Z Restoration of Cardiac Rhythm, Single (ICD-10-PCS; 2025-09-05)
DX: I11.0 Hypertensive heart disease with heart failure (principal); I50.33 Acute on chronic diastolic (congestive) heart failure; J96.21 Acute and chronic respiratory failure with hypoxia; I48.19 Other persistent atrial fibrillation; I47.20 Ventricular tachycardia, unspecified; I5A Non-ischemic myocardial injury (non-traumatic); I70.0 Atherosclerosis of aorta; I34.0 Nonrheumatic mitral (valve) insufficiency; M19.90 Unspecified osteoarthritis, unspecified site; I25.10 Atherosclerotic heart disease of native coronary artery without angina pectoris; D64.9 Anemia, unspecified; E78.00 Pure hypercholesterolemia, unspecified; Z79.01 Long term (current) use of anticoagulants; Z95.5 Presence of coronary angioplasty implant and graft; Z88.7 Allergy status to serum and vaccine; Z79.899 Other long term (current) drug therapy
CPT/HCPCS: 71046; 71275; 80048; 80053; 83735; 83880; 84443; 84484; 85025; 85027; 85379; 92960; 93005; 93306; 96374; 99285; Q9967

== ENCOUNTER → 2025-10-01 09:24 | Outpatient (REF) | payer OTHER, SELFPAY | LOC: HWRAD 09:24 | PROVIDERS: ATTENDING PHYSICIAN Internal Medicine; FAMILY PHYSICIAN Internal Medicine Geriatric Medicine | DX: R74.8 Abnormal levels of other serum enzymes (principal) | CPT/HCPCS: 76700 ==

== ENCOUNTER → 2025-10-18 09:36 | Outpatient (REF) | payer OTHER, SELFPAY | LOC: DHVS 09:36 | PROVIDERS: ATTENDING PHYSICIAN Internal Medicine Geriatric Medicine | DX: R20.0 Anesthesia of skin (principal) | CPT/HCPCS: 93931 ==

== ENCOUNTER 2025-11-11 06:00 | Day surgery (SDC) | payer OTHER, SELFPAY ==
[2025-11-04 10:22] VITALS: BMI 24.8
[2025-11-04 11:04] LABS: Hematocrit 38.2 % (39.0-52.0); Hemoglobin 12.5 g/dL (13.0-18.0); Mean Corp Hgb Conc. 32.7 g/dL (33.0-37.0); Mean Corpuscular Volume 89.0 fL (80.0-94.0); Nucleated Red Blood Cells % 0 % (-); Platelet Count 231 10^3/uL (130-400); Red Cell Dist. Width 15.3 % (11.5-14.5)
[2025-11-04 11:21] LABS: ALT (SGPT) 46 U/L (0-50); AST (SGOT) 47 U/L (17-59); Albumin 4.5 g/dl (3.5-5.0); Alkaline Phosphatase 269 U/L (38-126); Blood Urea Nitrogen 21 mg/dl (9-20); Calcium 10.4 mg/dl (8.4-10.2); Carbon Dioxide 30 mmol/L (22-30); Chloride 102 mmol/L (98-107); Estimated Creatinine Clearance 59 ml/min; Glucose 89 mg/dl (70-99); Potassium 4.2 mmol/L (3.5-5.1); Sodium 137 mmol/L (135-145); Total Protein 8.0 g/dl (6.3-8.2); eGFR > 60.00
[2025-11-11] VITALS (14 sets, daily range): BP systolic 109–121; BP diastolic 50–85; BMI 24.7
[2025-11-11 08:50] LABS: ACT-LR - POC 342 Seconds (116-155)
[2025-11-11 09:14] LABS: ACT-LR - POC 290 Seconds (116-155)
[2025-11-11 09:39] LABS: ACT-LR - POC 387 Seconds (116-155)
--- NOTE | 2025-11-11 10:06 | ITS.CL.ABL ---
Shank Breaker - Ablation
Ablation
Procedure Report:
AFIB ablation:
Mr. Capone is a very pleasant 85 yr old gentleman with h/o CAD (RN NICU - RCA and PCI with stent to D1), moderate MR, NSVT, severe LVH, cardiomyopathy, HTN, HLD, and CELSA and persistent atrial fibrillation presented today to the EP lab for atrial
fibrillation / flutter ablation.
Date of Procedure:
11/11/2025
Indications:
Recurrent atrial fibrillation / atrial flutter
Pre-Operative Diagnosis:
Persistent atrial fibrillation /Atrial flutter
Post-Operative Diagnosis:
Persistent atrial fibrillation /Atrial flutter
Procedure Performed:
Atrial fibrillation ablation with pulmonary vein isolation
Left atrial flutter � roof dependent ablation
Posterior wall isolation
Performing Physician:
Xavi Stewart MD
Assistants:
EP staff
Anesthesia:
See anesthesia records
Detailed Description of the Procedure:
Written informed consent was obtained from the patient after a full explanation of the risks and benefits of the procedure including the risks of sedation and anesthesia.
The patient was brought to the electrophysiology laboratory in stable condition in fasting state. Continuous electrocardiographic and hemodynamic monitoring was initiated.
The initial rhythm was sinus.
Time out:
The procedure site was meticulously prepared with surgical scrub and allowed to dry with no pooling. Sterile draping was applied to cover the procedure site. The image intensifier was draped with sterile bag and positioned over the patient.
Prior to the start of the procedure a surgical pause was performed with in agreement from anesthesia, EP staff with double identifier and explanation of the procedure, plan and site of the procedure stated with allergies and medications and
pertinent labs reviewed.
After infusion of local anesthetic, vascular access was obtained under ultrasound guidance and sheaths were placed over guide wire as detailed below. The images were stored in patient chart.
Sheaths:
Agilis sheath in right femoral vein upgraded from 8Fr in right femoral vein
9Fr in right femoral vein
7Fr in right femoral vein
6Fr in right femoral artery
Catheters:
The Affera Sphere 9 catheter -bidirectional D/F - at locations of HRA, RV, LA and LV.
ICE catheter - at locations of RA, SVC, and RV.
Bard decapolar catheter � In RA and CS
A 7000 units of heparin was given
Intracardiac ECHO:
An 8-Swazi AcuNav intracardiac ECHO (ICE) probe was advanced through the 9-Swazi sheath in the right femoral vein into the right atrium under fluoroscopic and ICE ultrasound image guidance and a baseline ECHO study was performed. The left atrial
size was severely dilated. There was trace tricuspid regurgitation. There was severre mitral regurgitation. There was mildly reduced left ventricular systolic function. There is no pericardial effusion. All the four veins were identified and has
good flow identified. No definite clot seen. Therre was sluggish flow into the BITA.
During the procedure, ICE was used for monitoring of complications, guidance of trans-septal puncture, monitor the catheter position and tracking ablation lesions. No change in the pericardial space noted throughout the procedure.
Trans-septal Puncture:
Heparin was initiated and infused to maintain appropriate ACT. A J-tipped guidewire was advanced through into the superior vena cava under fluoroscopic and ICE guidance. The Agilis sheath was advanced into the superior vena cava over a guidewire. A
BRK needle with stylet was advanced inside the Agilis sheath. The apparatus was withdrawn until it was in contact with the fossa ovalis. The position was adjusted based on fluoroscopy and ultrasound images from ICE. Under fluoroscopic, hemodynamic
and ICE ultrasound guidance, left atrium was cannulated by advancing the needle. Once atrial septum was cannulated, the needle was pulled back and the guide wire was advanced through the needle into the left atrium. The guide wire was advanced into
the left superior pulmonary vein. Both the sheath and the dilator was advanced into the left atrium. The dilator with the needle was withdrawn. Blood was aspirated from the Agilis sheath and arterial blood confirmed. The sheath was flushed. Saline
injection noted into the left atrium on ICE. The waveform of the LA pressure was recorded. The mapping catheter was advanced in the Agilis sheath into the left pulmonary vein.
The LA pressure sowed severe MR with large V waves. This appeared much elevated than previously reported on the ECHO report.
3D Electroanatomic Mapping:
Using the Sphere 9 Affera catheter advanced through Agilis sheath into the left atrium, an electroanatomic map (EAM) of the left atrium was created using [employer]ho[employer]� mapping system with Icera software. The map was used for localization of catheter
position and tacking of ablation lesions.
The EAM of the left atrium showed a total of 5 PVs with two left and three right sided pulmonary veins. There was extensive scarring noted in the LA. The posterior wall had scattered signals. The LA was severely dilated.
Following the EAM, preparation were made for ablation.
Ablation:
Ablation # 1: Atrial fibrillation ablation - Pulmonary vein Isolation:
Pulsed field ablation was performed using an open irrigation, bidirectional, contact sensing, dual energy ablation catheter (Affera sphere -9) by completing the circumferential lesions around the left and right pulmonary veins achieving pulmonary
vein isolation.
Ablation # 2: Roof line Formation:
There was a clear channel of electrical activity left in the posterior wall with multiple CFAE and AF areas on the roof and ablation in that area increased the risk of atrial flutter and decision was made to create a roof line to block a slow
conduction. A set of pulsed field ablations were placed on the roof line connecting the left superior pulmonary vein ablation lesions to the right superior pulmonary vein lesions rings.
Ablation # 3: Posterior wall isolation with the Box lesions set Formation:
There was a significant fractionation seen in the posterior wall and LA AF foci along with CFAE made it clear as the posterior wall is critical in maintaining the atrial fibrillation and the decision was made to isolate the posterior wall by
creating a �Box� lesions.
A set of Pulsed field ablations were placed on the floor line connecting the left inferior pulmonary vein ablation lesions to the right inferior pulmonary vein lesions rings.
The sphere 9 in the posterior wall showed entrance block and the pacing from the posterior wall showed no exit from the box lesions confirming the exit block.
Confirmation of the PVI and bidirectional block:
Following achievement of entrance block at the pulmonary veins, pacing from the Sphere 9 affera catheter in each of the four veins at 10 milliamps for 4 milliseconds showed entrance and exit block.
The LA was mapped with The Affera� mapping system with Icera software in sinus rhythm confirming the line of block at the ablation lesions lines.
All PVI were rechecked at the end of the case. Entrance and exit block were demonstrated.
With the extent of mitral regurgitation, and the anesthesia reporting ST changes at the start of induction of sedation, it was decided to rule out any acute MR or acute coronary with coronary angiogram.
Interventional cardiology (Dr. Raza Ramsey) was consulted and pt underwent left and right heart catheterization.
Please see a separate report.
It confirmed severe MR. Coronary angiography showed stable disease from RN NICU of the RCA with left to right collaterals and patent stent in D1 without any other obstructve disease.
Procedure End
ICE study was done again that showed no epicardial accumulation. No complications noted.
Following the completion of the EP study, catheters were removed. Protamine 40 mg was given at the end of the procedure and ACT was checked repeatedly. The sheaths were removed and hemostasis achieved with fig of 8 suture to femoral veins and
Angioseal to the femoral artery and manual compression.
Left atrial Pressure:
Pre-Procedure: Mean LA pressure was 28mmHg (large v wave)
Post-Procedure: Mean LA pressure was 32mmHg (large v wave)
Post-Procedure: Mean RA pressure was 18mmHg
Estimated Blood loss:
<10 cc
Specimens Removed:
None.
Implants / Devices:
None
Urine output:
None
Packs / Drains/ Tubes:
None
Instrument / Sponge Count Correct:
Yes
Complications of the Procedure:
None
Condition of Patient at Time of Transfer:
Hemodynamically stable with no neurological or vascular compromise.
Summary:
Successful atrial fibrillation ablation with pulmonary vein isolation, roof flutter ablation, posterior wall isolation.
[2025-11-11] MEDS: LASIX 40 MG IV (10:45)
--- NOTE | 2025-11-11 11:39 | ITS.CL.CATH ---
Primer Waterproofing Machine Adjuster - Catheterization
Cardiac Catheterization
Procedure Report:
CARDIAC CATHETERIZATION REPORT
Date of Procedure: 11/11/2025
Referring: Xavi Stewart M.D.
INDICATION: Known coronary artery disease with prior PCI, severe mitral valve regurgitation with systolic cardiomyopathy, acute EKG changes during A-fib ablation concerning for acute ischemia.
PROCEDURE:
1. Left heart catheterization.
2. Coronary angiography.
3. Mitral valve pressure interrogation from previously placed transseptal entry of the left atrium for A-fib ablation.
A total of 0 minutes of procedural/moderate sedation was utilized. General endotracheal anesthesia was provided by the anesthesia staff as part of his atrial fibrillation ablation.
ACCESS:
1. 6 Serbian right common femoral artery using modified Seldinger technique.
CATHETERS:
1. 5 Serbian JL 4.
2. 5 Serbian JR4.
HEMODYNAMIC DATA
Weight (kg): 76.9
AO (s/d/x, mmHg): 147/67/97
LV (s/x mmHg): 147/26
LA (a/v/x mmHg): 32/50/26
AV gradient (x, mmHg): None.
MV gradient (x, mmHg): None.
LEFT VENTRICULOGRAPHY: Not performed.
CORONARY ANGIOGRAPHY
Dominance: Right.
Left Main: Normal size, bifurcating vessel. There is no coronary artery disease.
LAD: Large size vessel giving rise to 2 diagonals. A patent stent is observed in the proximal margin of the first diagonal with no evidence of in-stent restenosis.
Ramus: Congenitally absent.
Circumflex: Large size, nondominant vessel giving rise to 1 large obtuse marginal. There is no coronary artery disease.
RCA: Normal size, dominant vessel. The vessel is chronically totally occluded in its midsection. The distal vessel and RPDA are supplied by collaterals from the LAD and circumflex.
INTERVENTION(S)
None.
Closure Device: 6 Serbian Angio-Seal.
Radiation (mGy): 161.37
DAP (cm2.Gy): 8.52
Fluoroscopy time (minutes): 3.8
CONCLUSIONS
1. Right dominant circulation with a chronic total occlusion of the mid RCA and robust collaterals from the left coronary tree to the distal RCA/RPDA as well as a patent stent in the first diagonal. No acute ischemic cause for EKG changes or
worsening of systolic function and mitral regurgitation.
2. Severely elevated filling pressures (LVEDP = 26 mmHg, LA = 26 mmHg at 76.9 kg).
3. Large V wave (50 mmHg), consistent with severe mitral valve regurgitation seen on echocardiography.
RECOMMENDATIONS:
1. Expectant management after cardiac catheterization via right common femoral approach.
2. Limited weight bearing for one week.
3. Discussion with primary block sealer regarding need for mitral valve intervention.
4. We will set up a M�TESSA transesophageal echocardiogram to assess anatomy and suitability.
5. Routine post atrial fibrillation ablation care.
Copy to: Xavi Stewart M.D., Clyde Barahona M.D., PhD, Collin Smallwood M.D.
Raza Ramsey DO, FACC, FACP
--- NOTE | 2025-11-11 12:00 | PTCARENOTE ---
Received pt S/P PVI ablation and cardiac cath. Ox3, bedrest maintained. VSS, monitor showing sb-sr. Right groin dressing c/d/i, no bleeding or hematoma noted. Pulses present by doppler. Activity restrictions reviewed, call latif in reach.
[2025-11-11] MEDS: ELIQUIS 5 MG PO (17:59)
[2025-11-11] MEDS: HIPREX 1 GRAM PO (20:03)
[2025-11-11] MEDS: LIPITOR 40 MG PO (21:21)
[2025-11-12 02:30] VITALS: BP 123/64
[2025-11-12 02:44] VITALS: BMI 23.9
[2025-11-12 03:07] LABS: Hematocrit 34.7 % (39.0-52.0); Hemoglobin 11.6 g/dL (13.0-18.0); Mean Corp Hgb Conc. 33.4 g/dL (33.0-37.0); Mean Corpuscular Volume 87.0 fL (80.0-94.0); Platelet Count 210 10^3/uL (130-400); Red Cell Dist. Width 15.6 % (11.5-14.5)
[2025-11-12 03:18] LABS: Blood Urea Nitrogen 23 mg/dl (9-20); Calcium 9.8 mg/dl (8.4-10.2); Carbon Dioxide 28 mmol/L (22-30); Chloride 102 mmol/L (98-107); Estimated Creatinine Clearance 54 ml/min; Glucose 85 mg/dl (70-99); HDL Cholesterol 63 mg/dl; LDL Cholesterol, Calculated 33 mg/dl; Magnesium 1.9 mg/dl (1.6-2.3); Potassium 4.2 mmol/L (3.5-5.1); Sodium 136 mmol/L (135-145); Very Low Density Lipoprotein 22 mg/dl (0-30); eGFR > 60.00
[2025-11-12 07:27] VITALS: BP 136/69
[2025-11-12] MEDS: LASIX 40 MG IV (08:52)
[2025-11-12] MEDS: ELIQUIS 5 MG PO (08:53)
[2025-11-12] MEDS: CARDIZEM CD 240 MG PO (08:53)
[2025-11-12] MEDS: HIPREX 1 GRAM PO (08:53)
--- NOTE | 2025-11-12 09:00 | W.PN.CD ---
Today's Communication / Plan
-
- Stable for discharge today.
Impression / Plan
-
Mr. Capone is a very pleasant 85 yr old gentleman, patient of Dr. 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
ablation 11/11/25
Persistent AF
- Status post ablation on 11/11/2025
- Severely sclerosed left atrium -extensive scarring noted
- Status post PVI, PWI.
- Left atrial appendage has signal and was not isolated. Otherwise most of the left atrium is scarred.
Mitral regurgitation
- Severe MR noted
- Ischemic acute VT was ruled out with left heart cath
- Dr. Trent did left and right coronary artery injection. Stable coronary artery disease with patent D1 stent
- Chronic total occlusion of RCA was again documented with [id number] collaterals.
- Plan for dedicated RADHA in a month to evaluate degree of MR.
- With A-fib ablation done, patient's left atrium is expected to shrink in size reducing functional MR
- Evaluate RADHA to assess the need for further intervention.
CAD
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
- On Eliquis, Lipitor, and diltiazem
Physical Exam
Vital Signs/Labs
Vital Signs
Temp Pulse Resp BP Pulse Ox
98.3 F 69 14 136/69 96
11/12/25 07:28 11/12/25 08:53 11/12/25 07:28 11/12/25 08:53 11/12/25 07:28
11/11/25 11/12/25 11/13/25
06:59 06:59 06:59
Actual Weight 76.9 kg 74.6 kg
11/12/25 02:36
11/12/25 02:36
Magnesium 1.9 mg/dl (1.6-2.3) 11/12/25 02:36
Triglycerides 110 mg/dl (10-149) 11/12/25 02:36
LDL Cholesterol, Calc 33 mg/dl 11/12/25 02:36
VLDL Cholesterol, Calc 22 mg/dl (0-30) 11/12/25 02:36
HDL Cholesterol 63 mg/dl 11/12/25 02:36
Physical Exam
Constitutional: No acute distress and Comfortable
EENT: Anicteric and Moist mucous membranes
Cardiovascular: Rhythm & rate is regular, Pedal edema is absent and JVD pressure is normal
Respiratory: Respiratory effort normal, Lungs clear to auscul. and Wheeze Absent
GI: Soft, Non tender and Normal bowel sounds
Neuro/Psych: Alert, Oriented and AO x 3
Data Reviewed
-
Date of Service: November 12, 2025
Medical Decision Making: Reviewed Test Results, Test Interpretation and Review of Case with other Provider
EKG: Tracing Personally Visualized and interpreted
Echo: Report Reviewed by me
Labs: Labs Reviewed by me
Old Records: Reviewed
--- NOTE | 2025-11-12 09:40 | PTCARENOTE ---
received patient this am up, OOB ambulating in room. monitor shows NSR with a first degree, VSS. right groin dsg. intact, with a pinpoint of blood noted on dsg. distal pulse by Doppler only. patient is hoping to be D/C to home today.
--- NOTE | 2025-11-12 09:49 | W.DS.TRANS ---
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
-
Discharge Instructions:
Discharge Diagnosis/Procedures AFib, s/p ablation and cardiac catheterization
Diet Low Cholesterol
Driving Restrictions No driving for 24 hours
Blood Work BMP in 1 week- results to Dr. Barahona
Others Tests Weds 11/27- RADHA to eval Mitral Valve- you will get
a call the day prior with arrival time and
instructions.
Instructions:
Stand-Alone Forms: DC Instructions- Cath/EP Lab
Changes to Home Medications: Yes
Discharge Medications:
DC Medications w/original date entered in [employer] [facility]
methenamine hippurate 1 gram tablet 1 g PO BID 11/25/23
apixaban 5 mg tablet (Eliquis) 5 mg PO BID 08/31/24
atorvastatin 40 mg tablet (Lipitor) 40 mg PO HS 09/03/25
docusate sodium 100 mg capsule (Colace) 100 mg PO DAILYPRN PRN constipation 09/03/25
ascorbic acid (vitamin C) 500 mg tablet (Vitamin C) 500 mg PO DAILY 10/31/25
acetaminophen 500 mg tablet 1,000 mg PO Q6H PRN pain 11/11/25
diltiazem HCl 240 mg capsule,extended release 24 hr 240 mg PO DAILY 11/11/25
furosemide 20 mg tablet 40 mg (2 x 20 mg) PO DAILY #0 tabs 11/12/25
Home Medication Changes
DOSE INCREASE: furosemide
Pending Results: No
[2025-11-12 10:39] VITALS: BP 110/73
--- NOTE | 2025-11-12 11:05 | PTCARENOTE ---
D/C instructions given to patient, verbalizes understanding. INT D/C'd, telemetry D/C'd, personal belongings packed and snet home with patient. D/C to home via wc accompanied by staff.
--- NOTE | 2025-11-12 12:14 | CM ---
pt prev indep, lives with his in a 2 story home, no dc planning needs noted. plan is for dc today.
== END 2025-11-12 11:07 | disposition home or self-care (01) ==
LOC: CATH 06:00
PROVIDERS: Nurse Practitioner; ATTENDING PHYSICIAN Internal Medicine Cardiovascular Disease; FAMILY PHYSICIAN Internal Medicine Geriatric Medicine; OTHER PHYSICIAN Student in an Organized Health Care Education/Training Program
DX: I48.19 Other persistent atrial fibrillation (principal); I25.10 Atherosclerotic heart disease of native coronary artery without angina pectoris; I42.8 Other cardiomyopathies; I08.1 Rheumatic disorders of both mitral and tricuspid valves; Z95.5 Presence of coronary angioplasty implant and graft; E78.5 Hyperlipidemia, unspecified; I70.0 Atherosclerosis of aorta; I11.0 Hypertensive heart disease with heart failure; K76.0 Fatty (change of) liver, not elsewhere classified; Z87.442 Personal history of urinary calculi; G47.33 Obstructive sleep apnea (adult) (pediatric); I25.82 Chronic total occlusion of coronary artery; I44.0 Atrioventricular block, first degree; I48.92 Unspecified atrial flutter; M19.90 Unspecified osteoarthritis, unspecified site; N40.1 Benign prostatic hyperplasia with lower urinary tract symptoms; Z79.01 Long term (current) use of anticoagulants; Z79.899 Other long term (current) drug therapy; Z87.440 Personal history of urinary (tract) infections; Z88.7 Allergy status to serum and vaccine; Z98.41 Cataract extraction status, right eye; Z98.42 Cataract extraction status, left eye; Z96.651 Presence of right artificial knee joint; Z96.611 Presence of right artificial shoulder joint
CPT/HCPCS: C1769; C1894; C1730; C1733; C1766; C1892; C1759; 36415; 80048; 80053; 80061; 83735; 85025; 85027; 85347; 86850; 86900; 86901; 93005; 93458; 93656; 93657; C1760